=== PATIENT | female | born 1960 | race Caucasian/White ===

== ENCOUNTER 2021-04-23 16:33 | Emergency (ER) | payer MEDICARE ==
--- NOTE | 2021-04-23 16:47 | EDM.PDOC ---
ED HPI GENERAL MEDICAL PROBLEM - General Chief Complaint: General Stated Complaint: CHEST PRESSURE Time Seen by Provider: 04/23/21 16:38 Source of Information: Reports: Patient History Limitations: Reports: No Limitations - History of Present Illness INITIAL COMMENTS - FREE TEXT/NARRATIVE: Is a 61-year-old female presents today for chest pressure. Patient that she was riding horses and reached up to grab a saddle and felt a snap in her chest and since that time she had this pain and pressure in her chest. Patient states the pain is made worse with touching her chest or movement. She has no pain on exertion. Patient denies any chest pain other than the pain from grabbing the saddle. Patient denies any shortness of breath fever chills nausea vomiting but does have a productive cough. chest Pain Score (Numeric/FACES): 4 - Related Data Allergies Allergy/AdvReac Type Severity Reaction Status Date / Time meperidine [From Demerol] Allergy Other Verified 04/23/21 16:49 Home Meds: Home Meds Acetaminophen/oxyCODONE [Percocet 325-5 MG] 1 each PO Q8HR 5 Days #15 tab 04/23/21 [Rx] Azithromycin 500 mg PO DAILY 4 Days #4 tablet 04/23/21 [Rx] ED ROS GENERAL - Review of Systems Review Of Systems: See Below Constitutional: Reports: No Symptoms HEENT: Reports: No Symptoms Respiratory: Reports: No Symptoms Cardiovascular: Reports: Chest Pain Endocrine: Reports: No Symptoms GI/Abdominal: Reports: No Symptoms : Reports: No Symptoms Musculoskeletal: Reports: No Symptoms Skin: Reports: No Symptoms Neurological: Reports: No Symptoms Psychiatric: Reports: No Symptoms Hematologic/Lymphatic: Reports: No Symptoms Immunologic: Reports: No Symptoms ED EXAM, GENERAL - Physical Exam Exam: See Below Exam Limited By: No Limitations General Appearance: Alert, WD/WN, No Apparent Distress Respiratory/Chest: No Respiratory Distress, Lungs Clear, Normal Breath Sounds Cardiovascular: Normal Peripheral Pulses, Regular Rate, Rhythm, No Edema GI/Abdominal: Normal Bowel Sounds, Soft, Non-Tender Extremities: Normal Inspection Neurological: Alert, Oriented #1 Interpretation EKG Date: 04/23/21 Time: 16:32 Rhythm: NSR Rate (Beats/Min): 97 Starke: Normal ST-T: Normal Course - Vital Signs Last Recorded V/S: Last Vital Signs Temp 96.3 F L 06/22/21 16:46 Pulse 103 H 04/23/21 16:46 Resp BP 116/83 04/23/21 16:46 Pulse Ox 94 L 04/23/21 16:46 - Orders/Labs/Meds Orders: Active Orders 24 hr Category Date Time Status EKG Documentation Completion [RC] STAT Care 04/23/21 17:10 Active Labs: Laboratory Tests 04/23/21 04/23/21 Range/Units 17:07 17:07 WBC 17.96 H (4.0-11.0) K/uL RBC 4.44 (4.30-5.90) M/uL Hgb 14.1 (12.0-16.0) g/dL Hct 42.0 (36.0-46.0) % MCV 94.6 (80.0-98.0) fL MCH 31.8 (27.0-32.0) pg MCHC 33.6 (31.0-37.0) g/dL RDW Std Deviation 45.3 (28.0-62.0) fl RDW Coeff of Oni 13 (11.0-15.0) % Plt Count 354 (150-400) K/uL MPV 9.60 (7.40-12.00) fL Neut % (Auto) 78.0 (48.0-80.0) % Lymph % (Auto) 12.6 L (16.0-40.0) % [place] % (Auto) 8.6 (0.0-15.0) % Eos % (Auto) 0.6 (0.0-7.0) % Baso % (Auto) 0.2 (0.0-1.5) % Neut # (Auto) 14.0 H (1.4-5.7) K/uL Lymph # (Auto) 2.3 (0.6-2.4) K/uL [place] # (Auto) 1.6 H (0.0-0.8) K/uL Eos # (Auto) 0.1 (0.0-0.7) K/uL Baso # (Auto) 0.0 (0.0-0.1) K/uL Nucleated RBC % 0.0 /100WBC Nucleated RBCs # 0 K/uL Sodium 138 (136-145) mmol/L Potassium 3.9 (3.5-5.1) mmol/L Chloride 98 (98-107) mmol/L Carbon Dioxide 30.9 (21.0-32.0) mmol/L BUN 9 (7.0-18.0) mg/dL Creatinine 0.7 (0.6-1.0) mg/dL Est Cr Clr Drug Dosing 61.20 mL/min Estimated GFR (MDRD) > 60.0 ml/min Glucose 95 (74-106) mg/dL Calcium 9.2 (8.5-10.1) mg/dL Total Bilirubin 0.4 (0.2-1.0) mg/dL AST 27 (15-37) IU/L ALT 28 (14-63) IU/L Alkaline Phosphatase 157 H (46-116) U/L Creatine Kinase 33 (26-308) U/L Troponin I < 0.050 (0.000-0.056) ng/mL Total Protein 7.7 (6.4-8.2) g/dL Albumin 2.9 L (3.4-5.0) g/dL Globulin 4.8 H (2.6-4.0) g/dL Albumin/Globulin Ratio 0.6 L (0.9-1.6) Meds: Medications Discontinued Medications Generic Name Dose Route Start Last Admin Trade Name Freq PRN Reason Stop Dose Admin Azithromycin 500 mg 04/23/21 18:17 Azithromycin 250 Mg Tab PO 04/23/21 18:18 NOW STA Oxycodone/Acetaminophen 1 tab 04/23/21 18:04 Acetaminophen/Oxycodone 325-5 Mg Tab PO 04/23/21 18:05 ONETIME ONE - Re-Assessments/Exams Free Text/Narrative Re-Assessment/Exam: 04/23/21 18:35 Patient pain control Percocet patient was given is a Z-Checo for her cough and her likely COPD. Patient will be discharged home. Departure - Departure Time of Disposition: 18:35 Disposition: Home, Self-Care 01 Condition: Good Clinical Impression: COPD (chronic obstructive pulmonary disease), Costal chondritis - Discharge Information *PRESCRIPTION DRUG MONITORING PROGRAM REVIEWED*: Not Applicable *COPY OF PRESCRIPTION DRUG MONITORING REPORT IN PATIENT JOSETTE: Not Applicable Prescriptions: Azithromycin 500 mg PO DAILY 4 Days #4 tablet Acetaminophen/oxyCODONE [Percocet 325-5 MG] 1 each PO Q8HR 5 Days #15 tab Instructions: Costochondritis, [id number] Forms: ED Department Discharge Additional Instructions: The following information is given to patients seen in the emergency department who are being discharged to home. This information is to outline your options for follow-up care. We provide all patients seen in our emergency department with a follow-up referral. The need for follow-up, as well as the timing and circumstances, are variable depending upon the specifics of your emergency department visit. If you don't have a primary care physician on staff, we will provide you with a referral. We always advise you to contact your personal physician following an emergency department visit to inform them of the circumstance of the visit and for follow-up with them and/or the need for any referrals to a consulting specialist. The emergency department will also refer you to a specialist when appropriate. This referral assures that you have the opportunity for follow-up care with a specialist. All of these measure are taken in an effort to provide you with optimal care, which includes your follow-up. Under all circumstances we always encourage you to contact your private physician who remains a resource for coordinating your care. When calling for follow-up care, please make the office aware that this follow-up is from your recent emergency room visit. If for any reason you are refused follow-up, please contact the [facility] Emergency Department at and asked to speak to the emergency department charge nurse. Please follow up with your primary care physician. If you do not have a primary care physician, see below: [facility] [address] [place] [id number] [facility] [address] [place] [id number] He was seen today for pain over your sternum likely muscle skeletal base of your exam is made worse with movement and touching the area. Provided you pain medicine to help you with this. We also did EKG and troponin to make sure your heart was okay not involved. Your x-ray shows you have some chronic COPD and a productive cough we sent you home with azithromycin to take for the next 4 days. If you have any other concerning symptoms please return to the ED. Sepsis Event Note (ED) - Focused Exam Vital Signs: Vital Signs Temp Pulse BP Pulse Ox 04/23/21 16:46 96.3 F L 103 H 116/83 94 L - My Orders Last 24 Hours: My Active Orders 04/23/21 17:10 EKG Documentation Completion [RC] STAT - Assessment/Plan Last 24 Hours: My Active Orders 04/23/21 17:10 EKG Documentation Completion [RC] STAT Plan: Patient is a 61-year-old female who presents today for chest pain.. Patient states she is reasonable and tried to grab a set of when she felt a snap in her chest over sternum. Pain is reproducible on exam. Will obtain x-rays of the sternum we will also obtain EKG labs x-ray and reassess patient.
[2021-04-23] MEDS ORDERED: Acetaminophen/oxyCODONE 325-5 MG Tab PO ONE (18:04)
[2021-04-23 18:05] LABS: BLOOD UREA NITROGEN,BUN 9 mg/dL (7.0-18.0); CARBON DIOXIDE,CO2 30.9 mmol/L (21.0-32.0); CHLORIDE,CL 98 mmol/L (98-107); GLUCOSE RANDOM 95 mg/dL (74-106); POTASSIUM,K 3.9 mmol/L (3.5-5.1); SODIUM,NA 138 mmol/L (136-145)
--- NOTE | 2021-04-23 18:14 | CR ---
INDICATION: Chest pain over sternum with cough TECHNIQUE: Chest radiograph 2 views COMPARISON: None FINDINGS: Mediastinum: The mediastinum is normal in appearance. The heart silhouette is normal in size and morphology. Lung: Mild reticulonodular infiltrates are present within the lung bases bilaterally. Bilateral pulmonary hyperinflation and lucency noted, suggestive of moderate pulmonary emphysema. No sign of pleural effusion seen. No pneumothorax is identified. Bone and Soft tissue: Moderate dextroscoliosis of the lower thoracic spine is present and status post cyn stabilization. Bilateral metallic nipple piercings are noted. IMPRESSIONS: 1. Mild reticulonodular infiltrates are present within the lung bases bilaterally. 2. Bilateral pulmonary hyperinflation and lucency noted, suggestive of moderate pulmonary emphysema. Dictated by Saroj Mares MD @ 04/23/2021 6:14:03 PM Dictated by: Saroj Mares MD @ 04/23/2021 18:14:11 (Electronically Signed)
[2021-04-23] MEDS ORDERED: Azithromycin 250 MG Tab PO STA (18:17)
== END 2021-04-23 18:41 | disposition home or self-care (01) ==
LOC: MW.ED 16:33
DX: J44.9 Chronic obstructive pulmonary disease, unspecified (principal); M94.0 Chondrocostal junction syndrome [Tietze]; Z88.5 Allergy status to narcotic agent
CPT/HCPCS: 36415; 71046; 80053; 82550; 84484; 85025; 93005; 99285; A9270; 93010; 99283